=== PATIENT | female | born 1940 | race Caucasian/White ===

== ENCOUNTER → 2023-12-31 08:56 | Outpatient (REF) | payer MEDICARE, SELFPAY | LOC: PAVMRI 08:56 | PROVIDERS: ATTENDING PHYSICIAN Physician Assistant Surgical; FAMILY PHYSICIAN Nurse Practitioner Family | DX: M25.561 Pain in right knee (principal) | CPT/HCPCS: 73721 ==

== ENCOUNTER → 2024-02-27 11:39 | Outpatient (REF) | payer MEDICARE, SELFPAY | LOC: RAD 11:39 | PROVIDERS: ATTENDING PHYSICIAN Physician Assistant Surgical; FAMILY PHYSICIAN Nurse Practitioner Family | DX: M25.512 Pain in left shoulder (principal) | CPT/HCPCS: 73030 ==

== ENCOUNTER → 2024-04-10 07:03 | Outpatient (REF) | payer MEDICARE, SELFPAY | LOC: MRI 3T 07:03 | PROVIDERS: ATTENDING PHYSICIAN Physician Assistant Surgical; FAMILY PHYSICIAN Nurse Practitioner Family | DX: M25.512 Pain in left shoulder (principal) | CPT/HCPCS: 73221 ==